=== PATIENT | male | born 1950 | race Caucasian/White ===

== ENCOUNTER 2024-11-04 08:08 | Emergency (ER) | payer OTHER ==
[~2024-11-04] VITALS: Ht 177.8 cm; Wt 100.0 kg
[2024-11-04] MEDS ORDERED: HYDROcodone-ACET 5/325MG TAB PO ONE (08:45)
--- NOTE | 2024-11-04 08:45 | ED.PDOC ---
History of Present Illness HPI Comments 74 y.o male with PMH of CHF, dementia, and ESRD, presents to the ED via EMS for an evaluation of generalized weakness associated with frequent falls that started 2-3 days ago. EMS reports per family on scene, patient fell yesterday and today, had no head injuries or LOC. Patient states he falls due to ex spouse waxing the floor, mentions he had been laying on the floor for 4 hours today, as he was unable to get up after he fell, and also complains of left knee pain due to the fall. Patient does mention feeling weak as well. Patient has dialysis on Thursday, Thursday, and Thursday, has not received HD today yet. Patient also complains of fungal rash to his groin region which his ex spouse has been helping him manage at home. He denies any syncopes, dizziness, chest pain, nausea, vomiting, fever, chills. Patient is alert and orientated x 4. Chief Complaint: General Weakness Time Seen by MD: 08:19 Primary Care Provider: RAIN Reviewed Notes: Nurses Notes, Coding And Reimbursement Specialist Notes, Medications, Allergies Allergies: Coded Allergies: NO KNOWN ALLERGIES (Unverified , 11/04/24) Information Source: Patient, Emergency Med Personnel Mode of Arrival: EMS Severity: Moderate Timing: Days Duration: Since onset Past Medical History PAST MEDICAL HISTORY: CHF, Dementia, ESRD Past Medical History (Other): on dialysis Thursday, Thursday and Thursday Surgical History (Other): Right upper arm port Family History Family History: Reviewed,noncontributory to illness Social History Smoker: Non-Smoker Alcohol: Denies ETOH Use Drugs: Denies Drug Use Lives In: Home Constitutional: denies: chills, diaphoresis, fatigue, fever, malaise, sweats, weakness, others EENTM: denies: blurred vision, double vision, ear bleeding, ear discharge, ear drainage, ear pain, ear ringing, eye pain, eye redness, hearing loss, mouth pain, mouth swelling, nasal discharge, nose bleeding, nose congestion, nose pain, photophobia, tearing, throat pain, throat swelling, voice changes, others Respiratory: denies: cough, hemoptysis, orthopnea, SOB at rest, shortness of breath, SOB with excertion, stridor, wheezing, others Cardiovascular: denies: chest pain, dizzy spells, diaphoresis, Dyspnea on exertion, edema, irregular heart beat, left arm pain, lightheadedness, palpitations, PND, syncope, others Gastrointestinal: denies: abdomen distended, abdominal pain, blood streaked bowels, constipated, diarrhea, dysphagia, difficulty swallowing, hematemesis, melena, nausea, poor appetite, poor fluid intake, rectal bleeding, rectal pain, vomiting, others Genitourinary: denies: burning, dysuria, flank pain, frequency, hematuria, incontinence, penile discharge, penile sore, pain, testicle pain, testicle swelling, urgency, others Neurological: denies: dizziness, fainting, headache, left sided numbness, left sided weakness, numbness, paresthesia, pre-existing deficit, right sided numbness, right sided weakness, seizure, speech problems, tingling, tremors, weakness, others Musculoskeletal: denies: back pain, gout, joint pain, joint swelling, muscle pain, muscle stiffness, neck pain, others Integumetry: denies: bruises, change in color, change in hair/nails, dryness, laceration, lesions, lumps, rash, wounds, others Allergic/Immunocompromised: denies: Difficulty Healing, Frequent Infections, Hives, Itching, others Hematologic/Lymphatic: denies: anemia, blood clots, easy bleeding, easy bruising, swollen glands, others Endocrine: denies: excessive hunger, excessive sweating, excessive thirst, excessive urination, flushing, intolerance to cold, intolerance to heat, unexplained weight gain, unexplained weight loss, others Psychiatric: denies: anxiety, bipolar disorder, depression, hopeless, panic disorder, schizophrenia, sleepless, suicidal, others All Other Systems: Reviewed and Negative Physical Exam General Appearance: No Apparent Distress HEENT: Normal ENT Inspection Neck: Full Range of Motion, Non-Tender, Normal Inspection Respiratory: Decreased Breath Sounds, No Accessory Muscle Use, No Respiratory Distress Cardiovascular: No JVD, Regular Rate/Rhythm Breast Exam: Deferred Gastrointestinal: Non Tender, Soft Genitalia: Deferred Pelvic: Deferred Rectal: Deferred Extremities: Leg edema, Normal range of motion, Pedal edema, Other (Mild diffuse soft tissue tenderness left anterior knee area. No edema or bruising. Anterior/posterior drawer test negative. No varus/valgus instability.) Neurologic: Alert (Oriented x4), Normal Affect, Normal Mood, Other (Moves all extremities. No gross focal deficit.) Cerebellar Function: NOT DONE Reflexes: NOT DONE Skin: Dry, Normal Color, Warm Lymphatic: NOT DONE Was a procedure done? Was a procedure done?: No Differential Dx Considerations may include: Electrolyte imbalance, rhabdomyolysis, fluid overload/CHF, sprain/strain/frac ture/dislocation, Peripheral neuropathy, uremia, Metabolic Acidosis, among others X-Ray, Labs, Meds, VS Vital Signs Date Time Temp Pulse Resp B/P (MAP) Pulse Ox O2 Delivery O2 Flow Rate FiO2 11/04/24 09:30 85 15 96 Room Air* 0 21 11/04/24 09:30 97.7 85 20 159/70 (99) 95 97.7 11/04/24 08:18 98.8 83 18 151/79 (103) 95 11/04/24 08:15 82 Lab Test 11/04/24 09:00 Range/Units White Blood Count 7.4 4.4-10.8 10^3/uL Red Blood Count 3.81 L 4.5-5.90 10^6/uL Hemoglobin 11.5 L 13.5-17.5 g/dL Hematocrit 33.4 L 41.0-53.0 % Mean Corpuscular Volume 87.5 80.0-100.0 fL Mean Corpuscular Hemoglobin 30.2 28.0-32.0 pg Mean Corpuscular Hemoglobin Concent 34.5 32.0-36.0 g/dL Red Cell Distribution Width 14.9 H 11.8-14.3 % Platelet Count 386 140-450 10^3/uL Mean Platelet Volume 6.4 L 6.9-10.8 fL Neutrophils (%) (Auto) 77.4 37.0-80.0 % Lymphocytes (%) (Auto) 10.4 10.0-50.0 % Monocytes (%) (Auto) 10.5 0.0-12.0 % Eosinophils (%) (Auto) 1.0 0.0-7.0 % Basophils (%) (Auto) 0.7 0.0-2.0 % Neutrophils # (Auto) 5.7 1.6-8.6 10 ^3/uL Lymphocytes # (Auto) 0.8 0.4-5.4 10 ^3/uL Monocytes # (Auto) 0.8 0-1.3 10 ^3/uL Eosinophils # (Auto) 0.1 0-0.8 10 ^3/uL Basophils # (Auto) 0.1 0-0.2 10 ^3/uL Nucleated Red Blood Cells 0.0 % Sodium Level 136 136-145 mmol/L Potassium Level 3.8 3.5-5.1 mmol/L Chloride Level 96 L 98-107 mmol/L Carbon Dioxide Level 28 20-31 mmol/L Anion Gap 12 5-15 Blood Urea Nitrogen 53 H 9-23 mg/dL Creatinine 8.06 H 0.700-1.30 mg/dL Glomerular Filtration Rate Calc 6 >90 mL/min BUN/Creatinine Ratio 6.6 L 10.0-20.0 Serum Glucose 121 H 74-106 mg/dL Calcium Level 10.2 8.7-10.4 mg/dL Creatine Kinase 431 H 46-171 U/L Troponin I High Sensitivity 17 </=54 ng/L PROCEDURE(s): CXRP - CHEST PORTABLE REASON: gen weak, fall ORDER NUMBER(s): [id number], ACCESSION NUMBER(s): [id number] Procedure: XY CHEST PORTABLE 11/04/2024 09:28 AM Indication: gen weak, fall Comparison: None TECHNIQUE: XY CHEST PORTABLE FINDINGS: Medical devices: None. Cardiomediastinal: The heart is normal in size. Pulmonary vasculature is prominent. Atherosclerotic calcification of the aortic arch noted. Lungs: Limited low lung volume examination. Mild bilateral perihilar peribronchial cuffing noted. Mild left basilar subsegmental atelectasis . No lobar consolidation is seen. The costophrenic angles are clear. No pneumothorax. Bones/soft tissues: No acute abnormality is noted. IMPRESSION: 1. Bilateral perihilar peribronchial cuffing that may represent bronchitis or bronchial wall edema. Recommend clinical and biochemical correlation. EDURE(s): LKNE2 - L KNEE 2V XRAY REASON: fall ORDER NUMBER(s): [id number], ACCESSION NUMBER(s): [id number] EXAM: XY L KNEE 2V XRAY HISTORY: fall TECHNIQUE: 3 views of the knee. COMPARISON: None FINDINGS: Bones: No acute fracture or dislocation is seen. Joint spaces are maintained. Mild patellar osteophytosis. No significant suprapatellar joint effusion. Soft tissues: Diffuse arterial calcification noted. IMPRESSION: No acute osseous abnormality. Peripheral arterial disease. X-Ray, Labs, Meds, VS Comment 74-year-old male with a history of end-stage renal disease on dialysis, CHF, dementia brought in by EMS from home after what he describes as a mechanical fall. Patient was unable to get up for 4 hours per his history. Vitals remarkable for BP 151/79 Exam remarkable for mild diffuse soft tissue tenderness left knee Rhythm strip independently interpreted by me: Sinus rhythm, rate 82, no ectopy. EKG sinus rhythm, prolonged QTC interval, nonspecific T changes. Chest x-ray IMPRESSION: 1. Bilateral perihilar peribronchial cuffing that may represent bronchitis or bronchial wall edema. Recommend clinical and biochemical correlation. Left knee x-ray IMPRESSION: No acute osseous abnormality. Peripheral arterial disease. CBC unremarkable, BMP remarkable for BUN 53, creatinine 8.06, total CK 431, 1st troponin negative Patient treated with the following in the ED: [place] 5/325 mg p.o. for left knee pain On re-evaluation, patient states pain has improved. Vitals are stable. Oxygen saturation is 95% on room air Plan is to transfer the patient for dialysis which is due today, as well as P T/OT evaluation. Case discussed with [facility], will arrange for transfer. Authorization [id number] Time of 1ST Reevaluation: 09:30 Reevaluation 1ST: Unchanged Patient Education/Counseling: Diagnosis, Treatment Family Education/Counseling: No Family Present Departure 1 Departure Time of Disposition: 11:11 Impression: Primary Impression: Generalized weakness Additional Impressions: Fall Qualified Codes: W19.XXXA - Unspecified fall, initial encounter Left knee pain Qualified Codes: M25.562 - Pain in left knee Fluid overload Qualified Codes: E87.70 - Fluid overload, unspecified Disposition: 02 SHORT TERM HOSPITAL Admit to: Med Surg Condition: Guarded Critical Care Note Critical Care Time?: No Stability Stability form required: No Heart Score Heart Score: Heart Score Response (Comments) Value History N/A 0 EKG N/A 0 Age N/A 0 Risk Factors N/A 0 Troponin N/A 0 Total 0 I personally scribed for LEVI BATISTA MD ([email or web address]) on 11/04/24 at 08:45. Electronically submitted by Indy Swift ([facility]). LEVI BATISTA MD Nov 04, 2024 08:45
[2024-11-04 09:21] LABS: Basophils # (auto) 0.1 10 ^3/uL (0-0.2); Basophils % (auto) 0.7 % (0.0-2.0); Eosinophils # (auto) 0.1 10 ^3/uL (0-0.8); Hematocrit 33.4 % (41.0-53.0); Hemoglobin 11.5 g/dL (13.5-17.5); Lymphocytes # (auto) 0.8 10 ^3/uL (0.4-5.4); Lymphocytes % (auto) 10.4 % (10.0-50.0); Mean Corpuscular Hemoglobin 30.2 pg (28.0-32.0); Mean Corpuscular Hgb Conc. 34.5 g/dL (32.0-36.0); Mean Corpuscular Volume 87.5 fL (80.0-100.0); Monocytes # (auto) 0.8 10 ^3/uL (0-1.3); Monocytes % (auto) 10.5 % (0.0-12.0); Neutrophils # (auto) 5.7 10 ^3/uL (1.6-8.6); Neutrophils % (auto) 77.4 % (37.0-80.0); Platelet Count (auto) 386 10^3/uL (140-450); Red Blood Cells 3.81 10^6/uL (4.5-5.90); Red Cell Distribution Width 14.9 % (11.8-14.3); White Blood Cell 7.4 10^3/uL (4.4-10.8)
[2024-11-04 09:30] VITALS: PULSE 85; RESP 15; O2SAT 96
[2024-11-04 09:34] LABS: Potassium 3.8 mmol/L (3.5-5.1); Sodium 136 mmol/L (136-145)
[2024-11-04 09:35] LABS: Anion Gap 12 (5-15); Carbon Dioxide 28 mmol/L (20-31)
[2024-11-04 09:36] LABS: Calcium 10.2 mg/dL (8.7-10.4)
[2024-11-04 09:40] LABS: BUN/Creatinine Ratio 6.6 (10.0-20.0)
[2024-11-04 09:42] LABS: Blood Urea Nitrogen 53 mg/dL (9-23); Chloride 96 mmol/L (98-107); Glucose 121 mg/dL (74-106)
[2024-11-04 09:47] LABS: Creatine Kinase IFCC 431 U/L (46-171)
--- NOTE | 2024-11-04 10:39 | DVH ---
Procedure: XY CHEST PORTABLE 11/04/2024 09:28 AM Indication: gen weak, fall Comparison: None TECHNIQUE: XY CHEST PORTABLE FINDINGS: Medical devices: None. Cardiomediastinal: The heart is normal in size. Pulmonary vasculature is prominent. Atherosclerotic c alcification of the aortic arch noted. Lungs: Limited low lung volume examination. Mild bilateral perihilar peribronchial cuffing noted. Mil d left basilar subsegmental atelectasis . No lobar consolidation is seen. The costophrenic angles ar e clear. No pneumothorax. Bones/soft tissues: No acute abnormality is noted. IMPRESSION: 1. Bilateral perihilar peribronchial cuffing that may represent bronchitis or bronchial wall edema. R ecommend clinical and biochemical correlation.
--- NOTE | 2024-11-04 10:40 | DVH ---
EXAM: XY L KNEE 2V XRAY HISTORY: fall TECHNIQUE: 3 views of the knee. COMPARISON: None FINDINGS: Bones: No acute fracture or dislocation is seen. Joint spaces are maintained. Mild patellar osteop hytosis. No significant suprapatellar joint effusion. Soft tissues: Diffuse arterial calcification noted. IMPRESSION: No acute osseous abnormality. Peripheral arterial disease.
[2024-11-04] MEDS: HYDROcodone-ACET 5/325MG TAB PO ONE (12:30)
[2024-11-04 13:46] VITALS: BP 155/60; PULSE 87; RESP 16; TEMP 98; O2SAT 96
--- NOTE | 2024-11-07 15:21 | ECG ---
[facility] Test Date: 2024-11-04 Test Time: 08:15:27 Pat Name: TITO REDDY Department: ED Room: Gender: M Executive Assistant To President: GASPER : 1950 Requested By: LEVI BIRD Order Number: [id number] Reading MD: Alber Geiger Measurements Intervals [place] Rate: 82 P: 68 WI: 123 QRS: 20 QRSD: 99 T: 61 QT: 408 QTc: 477 Interpretive Statements Sinus rhythm Borderline prolonged QT interval Electronically Signed On 11-11-2024 9:45:54 PST by Alber Geiger Please click the below link to view image of tracing.
== END 2024-11-04 14:16 | disposition short-term general hospital (02) ==
LOC: EDBD 08:08 → ER 08:08
DX: R53.1 Weakness (principal); M25.562 Pain in left knee; E87.70 Fluid overload, unspecified; Z98.890 Other specified postprocedural states; X58.XXXA Exposure to other specified factors, initial encounter; Y93.89 Activity, other specified; Y92.89 Other specified places as the place of occurrence of the external cause; Y99.8 Other external cause status
CPT/HCPCS: 36415; 71045; 73560; 80048; 82550; 84484; 85025; 93005